=== PATIENT | female | born 1995 | race Caucasian/White ===

== ENCOUNTER 2021-08-04 04:49 | Emergency (ER) | payer SELFPAY ==
[~2021-08-04] VITALS: Ht 162.5 cm; Wt 72.6 kg
== END 2021-08-04 06:45 | disposition home or self-care (01) ==
LOC: ED 04:49
DX: R51.9 Headache, unspecified (principal); R11.0 Nausea

== ENCOUNTER 2021-08-09 05:07 | Emergency (ER) | payer SELFPAY ==
[~2021-08-09] VITALS: Ht 162.5 cm; Wt 72.6 kg
[2021-08-09] MEDS ORDERED: METHOCARBAMOL500 M1 PO (05:27)
== END 2021-08-09 05:36 | disposition home or self-care (01) ==
LOC: ED 05:07
DX: S16.1XXA Strain of muscle, fascia and tendon at neck level, initial encounter (principal); X58.XXXA Exposure to other specified factors, initial encounter; Y93.89 Activity, other specified; Y92.89 Other specified places as the place of occurrence of the external cause; Y99.8 Other external cause status